=== PATIENT | male | born 1985 | race Caucasian/White ===

== ENCOUNTER 2018-09-19 19:08 | Emergency (ER) | payer OTHER ==
[2018-09-19 19:32] VITALS: BP 157/82
[2018-09-19] MEDS ORDERED: CEPHALEXIN 500 MG CAPSULE PO ONE ×2 (20:11→21:12)
[2018-09-19] MEDS ORDERED: OXYCODONE-ACETAMINOPHEN 5-325 MG TABLET PO ONE (20:11)
[2018-09-19] MEDS ORDERED: PROMETHAZINE HCL 25 MG TABLET PO ONE (20:11)
[2018-09-19] MEDS ORDERED: LIDOCAINE 1% INJ-PF (10 MG/ML) 30 ML SDV INJ ONE (20:12)
--- NOTE | 2018-09-19 20:16 | ER Document Report ---
ED Wound - General Chief Complaint: Laceration Stated Complaint: LEFT INDEX FINGER LACERATION Time Seen by Provider: 09/19/18 19:51 Notes: Patient is a 32-year-old male that comes to the emergency department for chief complaint of laceration to the left index finger, he states that he was changing the blade on a utility knife when he accidentally cut himself with the blade. This happened unfortunately at approximately 8 AM this morning, he states that it was bleeding heavily so he replaced paper towel and then duct tape over the wound followed by a glove. He states this stopped the bleeding but now it feels swollen and painful. He denies any other injuries. He is up- to-date on his tetanus within 1 year. He is not a diabetic. TRAVEL OUTSIDE OF THE [place] IN LAST 30 DAYS: No - Related Data Allergies/Adverse Reactions: Penicillins Allergy (Verified 12/16/13 14:55) Past Medical History - General Information source: Patient - Social History Smoking Status: Current Every Day Smoker Chew tobacco use (# tins/day): No Smoking Education Provided: Yes - <3 min Frequency of alcohol use: None Drug Abuse: None Lives with: Alone Family History: Reviewed & Not Pertinent Patient has suicidal ideation: No Patient has homicidal ideation: No Renal/ Medical History: Denies: Hx Peritoneal Dialysis Musculoskeletal Medical History: Reports Hx Musculoskeletal Deformity, Reports Hx Musculoskeletal Trauma - Immunizations Immunizations up to date: Yes Hx Diphtheria, Pertussis, Tetanus Vaccination: Yes Review of Systems - Review of Systems Constitutional: No symptoms reported EENT: No symptoms reported Cardiovascular: No symptoms reported Respiratory: No symptoms reported Gastrointestinal: No symptoms reported Genitourinary: No symptoms reported Male Genitourinary: No symptoms reported Musculoskeletal: See HPI Skin: See HPI Hematologic/Lymphatic: No symptoms reported Neurological/Psychological: No symptoms reported Physical Exam - Vital signs Vitals: Temp Pulse Resp BP Pulse Ox 98.9 F 96 18 157/82 H 98 09/19/18 19:30 09/19/18 19:30 09/19/18 19:30 09/19/18 19:30 09/19/18 19:30 - Notes Notes: GENERAL: Alert, interacts well. No acute distress. HEAD: Normocephalic, atraumatic. EYES: Pupils equal, round, and reactive to light. Extraocular movements intact. ENT: Oral mucosa moist, tongue midline. Oropharynx unremarkable. Airway patent. Nares patent, no nasal septal hematoma, TM's intact. NECK: Full range of motion. Supple. Trachea midline. LUNGS: Clear to auscultation bilaterally, no wheezes, rales, or rhonchi. No respiratory distress. HEART: Regular rate and rhythm. No murmur ABDOMEN: Soft, non-tender. Non-distended. Bowel sounds present in all 4 quadrants. GENITOURINARY: Deferred EXTREMITIES: Left index finger with laceration over the PIP dorsally, vertical laceration, full-thickness. Range of motion intact, sensation and capillary refill intact, no obvious injury to the tendon or ligament, normal upper extremity exam otherwise. BACK: no cervical, thoracic, lumbar midline tenderness. No saddle anesthesia, normal distal neurovascular exam. NEUROLOGICAL: Alert and oriented x3. Normal speech. [cranial nerves II through XII grossly intact]. PSYCH: Normal affect, normal mood. SKIN: Warm, dry, normal turgor. No rashes or lesions noted. Course - Re-evaluation Re-evalutation: X-ray of the finger is normal. On exploration after numbing and irrigating there is no evidence of tendon, nerve, or large vessel injury. Distal neurovascular exam intact. Wound was thoroughly cleaned, patient placed on Keflex, discussed wound care, follow-up and return precautions. Patient states understanding and agreement. - Vital Signs Vital signs: Temp Pulse Resp BP Pulse Ox 98.9 F 96 18 157/82 H 98 09/19/18 19:30 09/19/18 19:30 09/19/18 19:30 09/19/18 19:30 09/19/18 19:30 Procedures - Laceration/Wound Repair Left index finger Wound length (cm): 2 Wound's Depth, Shape: Linear Anesthetic type: 1% Lidocaine Volume Anesthetic (mLs): 4 Wound explored: Clean, No foreign body removed Irrigated w/ Saline (mLs): 70 Wound Repaired With: Sutures Suture Size/Type: 5:0, Nylon Number of Sutures: 5 Layer Closure?: No Post-procedure wound care: Sterile dressing applied, Splint applied Post-procedure NV exam normal: Yes Complications: No Discharge - Discharge Clinical Impression: Laceration of left index finger Qualifiers: Encounter type: initial encounter Damage to nail status: without damage Foreign body presence: without foreign body Qualified Code(s): S61.211A - Laceration without foreign body of left index finger without damage to nail, initial encounter Condition: Stable Disposition: HOME, SELF-CARE Additional Instructions: Sutures can be removed in 7 days. Keep clean, clean with soap and water. Dab dry. Avoid soaking. You can apply thin film of topical antibiotic. Keep protection over the area especially for the first several days. Take Keflex antibiotics to avoid infection. Return immediately for any signs of infection including developing pain, developing or spreading redness, discolored drainage, fever, or any other concerning symptoms. Prescriptions: Cephalexin Monohydrate [Keflex 500 mg Capsule] 500 mg PO QID #20 capsule
--- NOTE | 2018-09-19 20:49 | RADIOLOGY REPORT (SQ) ---
EXAM DESCRIPTION: FINGER LEFT COMPLETED DATE/TIME: 09/19/2018 8:23 pm REASON FOR STUDY: deep laceration, pain COMPARISON: None. NUMBER OF VIEWS: Three views. TECHNIQUE: AP, lateral, and oblique images acquired of the left second finger. LIMITATIONS: None. FINDINGS: MINERALIZATION: Normal. BONES: No acute fracture or dislocation. No worrisome bone lesions. SOFT TISSUES: No soft tissue swelling. No foreign body. OTHER: No other significant finding. IMPRESSION: NO RADIOGRAPHIC EVIDENCE OF ACUTE INJURY. TECHNICAL DOCUMENTATION: JOB ID: [id number] [employer]- All Rights Reserved Reading location - IP/workstation name: [email or web address]
[2018-09-19] MEDS ORDERED: HYDROCODONE/ACETAMINOPHEN 5-325 MG (6 TAB/ER DISP) PO PRN (21:13)
== END 2018-09-19 21:41 | disposition home or self-care (01) ==
LOC: ER 19:08
DX: S61.211A Laceration without foreign body of left index finger without damage to nail, initial encounter (principal); W26.0XXA Contact with knife, initial encounter; Y93.89 Activity, other specified; F17.200 Nicotine dependence, unspecified, uncomplicated; Z88.0 Allergy status to penicillin
CPT/HCPCS: 12001; 99283; 73140; J3490

== ENCOUNTER 2019-08-21 17:26 | Emergency (ER) | payer OTHER ==
[2019-08-21] MEDS ORDERED: KETOROLAC TROMETHAMINE 60 MG/2 ML SDV IM ONE (17:41)
--- NOTE | 2019-08-21 17:41 | ER Document Report ---
ED Medical Screen (RME) - General Chief Complaint: Back Pain Stated Complaint: BACK PAIN Time Seen by Provider: 08/21/19 17:38 Mode of Arrival: Ambulatory Information source: Patient Notes: 33-year-old male presented to ED for complaint of back pain. He states he woke up with pain is not his usual back pain. He states he drove himself to the hospital but he has a way to get home. He is alert oriented respirations regular nonlabored speaking in full sentences. He states he does not have any incontinence of urine or stool. He does not have any saddle anesthesia. He states he smokes half a pack a day does not drink and does not use illicit drugs. He states [facility] so he is not on pain management. He states he used to get epidural injections steroid injections. I have greeted and performed a rapid initial assessment of this patient. A comprehensive ED assessment and evaluation of the patient, analysis of test results and completion of medical decision making process will be conducted by an additional ED providers. TRAVEL OUTSIDE OF THE [place] IN LAST 30 DAYS: No - Related Data Allergies/Adverse Reactions: Penicillins Allergy (Verified 08/21/19 17:38) Past Medical History Renal/ Medical History: Denies: Hx Peritoneal Dialysis Musculoskeltal Medical History: Reports Hx Musculoskeletal Deformity, Reports Hx Musculoskeletal Trauma - Immunizations Immunizations up to date: Yes Hx Diphtheria, Pertussis, Tetanus Vaccination: Yes Physical Exam - Vital signs Vitals: Temp Pulse Resp BP Pulse Ox 97.8 F 75 20 126/91 H 100 08/21/19 17:33 08/21/19 17:33 08/21/19 17:33 08/21/19 17:33 08/21/19 17:33 Course - Vital Signs Vital signs: Temp Pulse Resp BP Pulse Ox 97.8 F 75 20 126/91 H 100 08/21/19 17:33 08/21/19 17:33 08/21/19 17:33 08/21/19 17:33 08/21/19 17:33
--- NOTE | 2019-08-21 18:12 | RADIOLOGY REPORT (SQ) ---
EXAM DESCRIPTION: L SPINE WHOLE COMPLETED DATE/TIME: 08/21/2019 5:53 pm REASON FOR STUDY: Exacerbation of chronic low back pain COMPARISON: None. NUMBER OF VIEWS: Five views including obliques. TECHNIQUE: AP, lateral, oblique, and sacral radiographic images acquired of the lumbar spine. LIMITATIONS: None. FINDINGS: MINERALIZATION: Normal. SEGMENTATION: Normal. No transitional anatomy. ALIGNMENT: Normal. VERTEBRAE: Maintained height. No fracture or worrisome bone lesion. DISCS: Mild L5-S1 intervertebral disc space narrowing. POSTERIOR ELEMENTS: Pedicles and facets are intact. No pars defect or posterior arch defects. HARDWARE: None in the spine. PARASPINAL SOFT TISSUES: Normal. PELVIS: Intact as visualized. No fractures or worrisome bone lesions. SI joints intact. OTHER: No other significant finding. IMPRESSION: Mild L5-S1 intervertebral disc space narrowing. TECHNICAL DOCUMENTATION: JOB ID: [id number]- All Rights Reserved Reading location - IP/workstation name: [email or web address]
[2019-08-21 18:36] LABS: APPEARANCE,URINE CLEAR; BILIRUBIN,URINE NEGATIVE (NEGATIVE); COLOR,URINE YELLOW; GLUCOSE, URINE NEGATIVE (NEGATIVE); KETONES,URINE NEGATIVE (NEGATIVE); LEUKOCYTE ESTERASE,URINE NEGATIVE (NEGATIVE); NITRITE,URINE NEGATIVE (NEGATIVE); PROTEIN,URINE NEGATIVE (NEGATIVE); URINE SPECIFIC GRAVITY 1.028; UROBILINOGEN,URINE NEGATIVE mg/dL (<2.0)
[2019-08-21 19:12] LABS: ABSOLUTE BASOPHILS # (AUTO) 0.1 10^3/uL (0.0-0.2); ABSOLUTE EOSINOPHILS # (AUTO) 0.2 10^3/uL (0.0-0.6); ABSOLUTE LYMPHOCYTES (AUTO) 2.9 10^3/uL (0.5-4.7); ABSOLUTE MONOCYTES (AUTO) 0.9 10^3/uL (0.1-1.4); ABSOLUTE NEUT (AUTO) 5.6 10^3/uL (1.7-8.2); BASOPHILS % (AUTO) 0.5 % (0-2); EOSINOPHILS % (AUTO) 2.1 % (0-6); HEMATOCRIT 46.3 % (37.9-51.0); HEMOGLOBIN 15.7 g/dL (13.5-17.0); LYMPHOCYTES % (AUTO) 29.7 % (13-45); MEAN CORPUSCULAR HEMOGLOBIN 31.2 pg (27.0-33.4); MEAN CORPUSCULAR HGB CONC 33.8 g/dL (32.0-36.0); MEAN CORPUSCULAR VOLUME 92 fl (80-97); MONOCYTES % (AUTO) 9.4 % (3-13); PLATELET COUNT 281 10^3/uL (150-450); RED BLOOD COUNT 5.02 10^6/uL (4.35-5.55); RED CELL DISTRIBUTION WIDTH 14.2 % (11.5-14.0); SEGMENTED NEUTROPHILS % (AUTO) 58.3 % (42-78); TOTAL CELLS COUNTED % (AUTO) 100 %; WHITE BLOOD COUNT 9.7 10^3/uL (4.0-10.5)
[2019-08-21 19:50] LABS: ALKALINE PHOSPHATASE 52 U/L (38-126); ANION GAP 9 (5-19); ASPARTATE AMINO TRANSFERASE 29 U/L (17-59); BILIRUBIN,DIRECT 0.1 mg/dL (0.0-0.4); BILIRUBIN,TOTAL 0.4 mg/dL (0.2-1.3); BLOOD UREA NITROGEN 15 mg/dL (7-20); CALCIUM 9.2 mg/dL (8.4-10.2); CARBON DIOXIDE 25 mmol/L (22-30); CHLORIDE 109 mmol/L (98-107); GLUCOSE 82 mg/dL (75-110); POTASSIUM 4.6 mmol/L (3.6-5.0); TOTAL PROTEIN 6.5 g/dL (6.3-8.2)
[2019-08-21] MEDS ORDERED: DEXAMETHASONE SOD PHOS INJ 10 MG/1 ML VIAL IM ONE (20:56)
[2019-08-21] MEDS ORDERED: DIAZEPAM 5 MG TABLET PO ONE (20:56)
--- NOTE | 2019-08-21 21:00 | ER Document Report ---
HPI - HPI Time Seen by Provider: 08/21/19 17:38 Pain Level: 5 Context: Is a 33-year-old male that comes to the emergency department for chief complaint of back pain. He states he has chronic back pain that he has been in physical therapy for and has received injections for the past, however today it is worse than usual, has a lot of trouble getting up, straightening up, and is having sharp pain in his left lower back. He denies numbness, incontinence, fever, history of IV drug abuse. He denies any injury. He states he had MRIs in the past showing multiple herniated disks. [facility] - REPRODUCTIVE Reproductive: DENIES: : Past Medical History - General Information source: Patient - Social History Smoking Status: Current Every Day Smoker Chew tobacco use (# tins/day): No Frequency of alcohol use: None Drug Abuse: None Lives with: Family Family History: Reviewed & Not Pertinent Patient has suicidal ideation: No Patient has homicidal ideation: No Renal/ Medical History: Denies: Hx Peritoneal Dialysis Musculoskeletal Medical History: Reports Hx Musculoskeletal Deformity, Reports Hx Musculoskeletal Trauma - Immunizations Immunizations up to date: Yes Hx Diphtheria, Pertussis, Tetanus Vaccination: Yes Vertical Provider Document - CONSTITUTIONAL General Appearance: WD/WN, Mild Distress - Patient moves with obvious discomfort but otherwise he is not in distress - INFECTION CONTROL TRAVEL OUTSIDE OF THE [place] IN LAST 30 DAYS: No - HEENT HEENT: Atraumatic, Normal ENT Exam, Normocephalic - NECK Neck: Normal Inspection - RESPIRATORY Respiratory: Breath Sounds Normal, No Respiratory Distress - CARDIOVASCULAR Cardiovascular: Regular Rate, Regular Rhythm - GI/ABDOMEN Gastrointestinal: Abdomen Soft, Abdomen Non-Tender. negative: Abdomen Tender - BACK Back: negative: Normal Inspection - It is over the paraspinal muscles in the lumbar area, worse on the left extending down to the buttocks. Positive straight leg raise on the left. No midline tenderness, no saddle anesthesia, no signs of trauma. Normal upper and lower extremity range of motion, normal strength, normal distal neurovascular exam. - MUSCULOSKELETAL/EXTREMETIES Musculoskeletal/Extremeties: MAEW, FROM, Non-Tender - NEURO Level of Consciousness: Awake, Alert, Appropriate Motor/Sensory: No Motor Deficit, No Sensory Deficit - DERM Integumentary: Warm, Dry, No Rash Course - Re-evaluation Re-evalutation: Patient has an exam indicating left-sided sciatica. He denies IV drug abuse, does not have fever, denies trauma, has no focal numbness or weakness. He has pain with position changes and walking. Pain is very palpable on exam. Low suspicion of emergent cause of back pain or cord compression. Discussed options with patient. He states he is trying to get where he can move again but he does not want opiates. He does [facility]. Gi damian steroids, muscle relaxers, discussed follow-up and return precautions. Patient states appreciation and agreement - Vital Signs Vital signs: Temp Pulse Resp BP Pulse Ox 97.8 F 75 20 126/91 H 100 08/21/19 17:33 08/21/19 17:33 08/21/19 17:33 08/21/19 17:33 08/21/19 17:33 - Laboratory Result Diagrams: 08/21/19 18:43 08/21/19 18:43 Laboratory results interpreted by me: 08/21/19 08/21/19 18:43 18:43 RDW 14.2 H Chloride 109 H Discharge - Discharge Clinical Impression: Lower back pain Qualifiers: Chronicity: acute Back pain laterality: left Sciatica presence: with sciatica Sciatica laterality: sciatica of left side Qualified Code(s): M54.42 - Lumbago with sciatica, left side Condition: Stable Disposition: HOME, SELF-CARE Additional Instructions: Your x-ray shows some loss of space at the L5-S1 level but this is only the bones. Your symptoms are suggestive of a herniated disc and sciatica on the left side. Apply heat to the area, you have been given Decadron steroids, take the diazepam as prescribed as a muscle relaxer using the precautions. You can also continue [id number] anti-inflammatories. Follow-up with your provider for additional management. Return if you worsen including fever, numbness, inability to urinate, loss of control of your bowels, or any other concerning or worsening symptoms. Prescriptions: Diazepam [Valium 5 mg Tablet] 1 - 2 tab PO TID PRN #12 tablet PRN Reason: [facility]errals[facility] - Follow up in 3-5 days
[2019-08-21 21:16] VITALS: BP 131/88
== END 2019-08-21 21:11 | disposition home or self-care (01) ==
LOC: ER 17:26
DX: M54.42 Lumbago with sciatica, left side (principal); M54.9 Dorsalgia, unspecified; G89.29 Other chronic pain; F17.200 Nicotine dependence, unspecified, uncomplicated
CPT/HCPCS: 99283; 96372; 36415; 85025; 80053; 81001; 72110; J1885; J1100

== ENCOUNTER 2019-08-26 20:20 | Emergency (ER) | payer OTHER ==
[2019-08-26] MEDS ORDERED: OXYCODONE-ACETAMINOPHEN 5-325 MG TABLET PO ONE (20:47)
--- NOTE | 2019-08-26 20:49 | ER Document Report ---
ED Medical Screen (RME) - General Chief Complaint: Low Back Pain Stated Complaint: LOW BACK PAIN Time Seen by Provider: 08/26/19 20:38 Primary Care Provider: KIRAN,ORA [Primary Care Provider] - Follow up as needed Mode of Arrival: Wheelchair Information source: Patient Notes: Patient is a 33-year-old male presenting to the emergency department with chief complaint of low back pain. Patient reports he was seen in this emergency department 5 days ago, diagnosed with sciatica and sent home with a prescription for Valium. Patient reports pain has not improved at all. He states the pain has gotten worse and he is unable to bend his left leg. He reports he is able to ambulate with a very slow gait. He denies loss of control of his bowel movements or bladder. Patient is requesting an MRI. I have greeted and performed a rapid initial assessment of this patient. A comprehensive ED assessment and evaluation of the patient, analysis of test results and completion of the medical decision making process will be conducted by additional ED providers. I have specifically instructed the patient or family members with the patient to immediately return to any nursing staff should anything change in the patient's condition or with their chief complaint. This medical record was dictated with voice recognizing software. There may be grammatical, syntax errors that are unintended. TRAVEL OUTSIDE OF THE [place] IN LAST 30 DAYS: No - Related Data Allergies/Adverse Reactions: Penicillins Allergy (Verified 08/21/19 17:38) Past Medical History - Social History Chew tobacco use (# tins/day): No Frequency of alcohol use: None Drug Abuse: None Renal/ Medical History: Denies: Hx Peritoneal Dialysis Musculoskeltal Medical History: Reports Hx Musculoskeletal Deformity, Reports Hx Musculoskeletal Trauma - Immunizations Immunizations up to date: Yes Hx Diphtheria, Pertussis, Tetanus Vaccination: Yes Physical Exam - Vital signs Vitals: Temp Pulse Resp BP Pulse Ox 98.0 F 79 16 154/91 H 99 08/26/19 20:25 08/26/19 20:25 08/26/19 20:25 08/26/19 20:25 08/26/19 20:25 Course - Vital Signs Vital signs: Temp Pulse Resp BP Pulse Ox 98.0 F 79 16 154/91 H 99 08/26/19 20:25 08/26/19 20:25 08/26/19 20:25 08/26/19 20:25 08/26/19 20:25 Doctor's Discharge - Discharge Referrals: [facility] - Follow up as needed
--- NOTE | 2019-08-27 00:55 | ER Document Report ---
ED General - General Chief Complaint: Back Pain Stated Complaint: LOW BACK PAIN Time Seen by Provider: 08/26/19 20:38 Primary Care Provider: KIRAN,ORA [Primary Care Provider] - Follow up as needed Mode of Arrival: Wheelchair Notes: 33-year-old male with a new history extensive history of chronic low back pain presents emergency department stating that he has been having significantly worsened back pain for the past 5 days, pain radiates from "my asked to my hamstring on the right and then it goes to the front of my right knee but also the middle of my right thigh." Patient states that 5 days ago he woke up and had severe low back pain that feels like a toothpick that is about to snap in his low back. States that he is able to walk but he is dragging his leg when he walks and it causes him significant pain. Denies any trauma. Denies having pain like this in the past. States that he was seen here 5 days ago and prescribed Valium and also given steroids and that made no difference in his pain. States that he is using Epsom salt soaks, heat and ice without any difference. States that the pain is mostly in his low back in his left leg but also goes to his right leg. States that his right leg is numb and tingling alternating from his knee down, states that his left leg is tingling from his hip down, denies any saddle anesthesia, denies any fecal incontinence, admits some urinary incontinence because he really needs to urinate but then cannot make it to the bathroom in time because it hurts so much to walk. States that he does have sweats and chills, does not know if he has a fever because he does not own a thermometer. Admits slight increase in his sweats and chills from baseline. Attributes his sweats and chills that he has had for years and years to his ch ronic low back pain, states that he is gets these when the pain has worsened. Denies cancer, immunosuppressive medications, diabetes, injectable drug use. TRAVEL OUTSIDE OF THE [place] IN LAST 30 DAYS: No - Related Data Allergies/Adverse Reactions: Penicillins Allergy (Verified 08/21/19 17:38) Past Medical History - General Information source: Patient - Social History Smoking Status: Current Every Day Smoker Chew tobacco use (# tins/day): No Frequency of alcohol use: None Drug Abuse: None Family History: Reviewed & Not Pertinent Patient has suicidal ideation: No Patient has homicidal ideation: No Renal/ Medical History: Denies: Hx Peritoneal Dialysis Musculoskeletal Medical History: Reports Hx Musculoskeletal Deformity, Reports Hx Musculoskeletal Trauma - Immunizations Immunizations up to date: Yes Hx Diphtheria, Pertussis, Tetanus Vaccination: Yes Review of Systems - Review of Systems Constitutional: See HPI, Chills, Diaphoresis EENT: No symptoms reported Genitourinary: See HPI, Incontinence Male Genitourinary: No symptoms reported Musculoskeletal: See HPI Neurological/Psychological: See HPI -: Yes All other systems reviewed and negative Physical Exam - Vital signs Vitals: Temp Pulse Resp BP Pulse Ox 98.0 F 79 16 154/91 H 99 08/26/19 20:25 08/26/19 20:25 08/26/19 20:25 08/26/19 20:25 08/26/19 20:25 Interpretation: Hypertensive - Notes Notes: GENERAL: Alert, interacts well. No acute distress. HEAD: Normocephalic, atraumatic EYES: Pupils equal, round and reactive to light, extraocular movements intact. ENT: Oral mucosa moist, tongue midline. NECK: Full range of motion, supple, trachea midline. LUNGS: Clear to auscultation bilaterally, no wheezes, rales or rhonchi, no respiratory distress. HEART: Regular rate and rhythm, no murmurs, gallops, rubs. ABDOMEN: Soft, nontender, nondistended, bowel sounds present in all 4 quadrants. EXTREMITIES: Moves all 4 extremities spontaneously, no edema, radial and dorsalis pedis pulses 2/4 bilaterally. No cyanosis. 5 out of 5 great toe raising strength bilaterally, 5 out of 5 muscle strength in flexing and extending at both the knee and the hip though he complains of pain with all of these movements. Negative straight leg raising test bilaterally, complains that worsens the pain in his low back but does not cause any radiation of the pain. BACK: Midline bony tenderness to palpation from L1-L5, no step-offs or deformities, no erythema noted. NEUROLOGICAL: Alert and oriented x3, normal speech, biceps and patellar DTRs 2+ bilaterally. No saddle anesthesia, complains that on his left foot the sensat ion is decreased, he can feel pressure but states that it feels numb at the same time. Sensation intact across his right foot. PSYCH: Normal mood, normal affect. SKIN: Warm, Dry, normal turgor, no rashes or lesions noted. Capillary refill 2+ both feet. Course - Re-evaluation Re-evalutation: 08/27/19 01:00 No red flag symptoms, no evidence of cauda equina, able to ambulate albeit slowly, no foot drop. Patient is already been trialed on muscle relaxers and steroids. Valium did not help. He does not want to try any other muscle relaxers. Patient would like to know if he could have more of a "loose to little pills that I was given in triage". Patient was given 2 tablets of Percocet in triage which has decreased his pain somewhat. Discussed with patient that for an acute worsening of his chronic back pain narcotics are not indicated. Also no indication for an MRI. X-rays were performed previously 5 days ago and are negative. These were reviewed by me. Discussed with patient the importance of following up with his primary care physician as an outpatient. [facility], hopefully on [facility]. Discussed all red flag symptoms and any indications for return. Patient is discharged home. - Vital Signs Vital signs: Temp Pulse Resp BP Pulse Ox 98.0 F 79 16 154/91 H 99 08/26/19 20:25 08/26/19 20:25 08/26/19 20:25 08/26/19 20:25 08/26/19 20:25 Discharge - Discharge Clinical Impression: Acute exacerbation of chronic low back pain Condition: Stable Disposition: HOME, SELF-CARE Additional Instructions: Low Back Pain Three out of every four people will have an episode of disabling back pain during their lifetime. Most commonly the pain is due to straining of the muscles and ligaments in the low back. Usual treatment includes: (1) Rest on a firm surface. Avoid lying on your stomach. (2) Ice pack the painful area. After a few days, gentle heat may be used intermittently to relax the area, or ice packs can be continued. (3) Medication may be needed -- muscle relaxers and antiinflammatory medicines are commonly used. (4) As the back improves, exercises are prescribed to strengthen the back and abdominal muscles. Your doctor will advise you on the proper care for your back at each stage in your recovery. You may be better in a few days -- or healing may take several weeks. If you develop worsening numbness of your feet, any numbness between your legs, inability to control your bowels or bladder, fevers or any new or concerning symptoms please return to the emergency department immediately. [facility]. Medication you were given in triage tonight was Percocet. As previously discussed you will not be prescribed any narcotics for your acute worsening of your chronic low back pain. [facility]errals: [facility] [[facility]] - Follow up as needed
[2019-08-27 01:18] VITALS: BP 139/60
== END 2019-08-27 01:17 | disposition home or self-care (01) ==
LOC: ER 20:20
DX: G89.29 Other chronic pain (principal); M54.5 Low back pain; R20.0 Anesthesia of skin; R20.2 Paresthesia of skin; R61 Generalized hyperhidrosis; R68.83 Chills (without fever); R32 Unspecified urinary incontinence; F17.200 Nicotine dependence, unspecified, uncomplicated; Z88.0 Allergy status to penicillin